=== PATIENT | male | born 1945 | race Caucasian/White ===

== ENCOUNTER 2016-12-10 08:36 | Day surgery (SDC) | payer MEDICARE, BC ==
[2016-12-08 13:27] VITALS: BMI 53.8
[~2016-12-10 08:36] MED LIST: HEPARIN SODIUM,PORCINE 5,000 UNIT/ML 1 ML VIAL SQ ONE; MIDAZOLAM 2 MG/2 ML VIAL IV PRN; ONDANSETRON 4 MG/2 ML VIAL IVP ONE; ceFAZolin 3 GM in SODIUM CHLORIDE 0.9% 100 ML IVPB ONE
--- NOTE | 2016-12-10 09:19 | P.GSHP ---
History of Present Illness H&P Date: 12/10/16 Chief Complaint: Incarcerated umbilical hernia Patient seen in the office in September. He has had complaints of pain in the midabdomen. He notices a bulge in that area. It is been enlarging gradually with time. He was found to have an incarcerated umbilical hernia. He had a recent CAT scan of the abdomen which shows an abdominal wall hernia containing fat. No nausea or vomiting. Past Medical History Past Medical History: Atrial Fibrillation, GERD/Reflux, Hyperlipidemia, Myocardial Infarction ([place]), Prostate Disorder, Sleep Apnea/CPAP/BIPAP Additional Past Medical History / Comment(s): CHRONIC BACK PAIN, SLEEPS IN RECLINER w/CPAP; "Cardiac arrest 01/2010 was d/t me being on cordarone" Last Myocardial Infarction Date:: 01/2010 History of Any Multi-Drug Resistant Organisms: None Reported Past Surgical History: Cholecystectomy, Heart Catheterization, Joint Replacement , Tonsillectomy Additional Past Surgical History / Comment(s): MULT CARDIOVERSIONS, LEFT KNEE REPLACEMENT; "cath was after cardiac arrest just to make sure there were no blockages", lien in 1988 Past Anesthesia/Blood Transfusion Reactions: No Reported Reaction Additional Past Anesthesia/Blood Transfusion Reaction / Comment(s): "ran a high temperature after my gallbladder was out because I was running a fever...for 2 weeks...that was the only time"; per pt Coby did not say that he had malignant hyperthermia. Past Psychological History: No Psychological Hx Reported Smoking Status: Former smoker Past Alcohol Use History: Occasional Additional Past Alcohol Use History / Comment(s): smoking: started 1960 stopped 1983 Past Drug Use History: None Reported - Past Family History Mother Family Medical History: Cancer, Coronary Artery Disease (CAD) Additional Family Medical History / Comment(s): ca: pancreatic ( from) Father Family Medical History: Coronary Artery Disease (CAD) Additional Family Medical History / Comment(s): of a ruptured aortic aneurysm, tuberculosis Medications and Allergies Home Medications Medication Instructions Recorded Confirmed Type Acetaminophen-Codeine 300-30mg 1 tab PO DIRECTED PRN 01/31/15 12/08/16 History [Tylenol w/codeine #3] Dabigatran [Pradaxa] 150 mg PO BID 01/31/15 12/08/16 History Doxazosin Mesylate [Cardura] 6 mg PO HS 01/31/15 12/08/16 History Ergocalciferol [Vitamin D2 50,000 unit PO QAM 01/31/15 12/08/16 History (DRISDOL)] Meloxicam [Mobic] 15 mg PO DAILY 01/31/15 12/08/16 History Pravastatin Sodium [Pravachol] 20 mg PO HS 01/31/15 12/08/16 History tiZANidine [Zanaflex] 4 mg PO DIRECTED PRN 01/31/15 12/08/16 History Bisoprolol-Hctz 2.5-6.25 mg [Ziac 0.5 each PO QAM 01/01/16 12/08/16 History 2.5-6.25] Fish Oil/Dha/Epa [Fish Oil 1,200 1 each PO BID 01/01/16 12/08/16 History mg Fish Oil] Multivitamins, Thera [Multivitamin] 1 tab PO QAM 01/01/16 12/08/16 History Allergies Allergy/AdvReac Type Severity Reaction Status Date / Time No Known Allergies Allergy Verified 12/10/16 09:08 Surgical - Exam Vital Signs Temp Pulse Resp BP Pulse Ox 98.2 F 77 16 174/86 96 12/10/16 09:14 12/10/16 09:14 12/10/16 09:14 12/10/16 09:14 12/10/16 09:14 Physical exam: General: Well-developed, well-nourished HEENT: Normocephalic, sclerae nonicteric Abdomen: Nontender, nondistended, large incarcerated umbilical hernia, markedly obese Extremities: No edema Neuro: Alert and oriented Assessment and Plan (1) Incarcerated umbilical hernia Narrative/Plan: Will proceed with operative repair. Risks of bleeding, infection, recurrence, seroma formation, possible need for mesh placement, possible need for omentectomy, bowel injury were discussed. He understands and wishes to proceed Status: Acute
[2016-12-10] MEDS: LACTATED RINGERS 1,000 ML IV SCH ×2 (09:59→10:18)
[2016-12-10] MEDS ORDERED: LIDOCAINE 1% 20 ML VIAL (10MG/ML) FOR IV START INTRADERMA ONE (09:59)
[2016-12-10 10:13] LABS: Basophils % (A) 0 %; CH 33.4; Eosinophils # (A) 0.1 k/uL (0-0.7); Eosinophils % (A) 1 %; HCT 43.9 % (39.0-53.0); HDW 2.47; HGB 14.8 gm/dL (13.0-17.5); Luc # (Auto) 0.12; Luc % (Auto) 1; Lymphocytes # (A) 1.3 k/uL (1.0-4.8); Lymphocytes % (A) 15 %; MCH 33.2 pg (25.0-35.0); MCHC 33.6 g/dL (31.0-37.0); MCV 98.6 fL (80.0-100.0); Mean Platelet Volume 6.7; Monocytes # (A) 0.4 k/uL (0-1.0); Monocytes % (A) 5 %; Neutrophils % (A) 78 %; RBC 4.46 m/uL (4.30-5.90); WBC (Perox) 9.02
[2016-12-10] MEDS ORDERED: NEOSTIGMINE 1 MG/ML 10 ML VIAL ONE (10:18)
[2016-12-10] MEDS ORDERED: fentaNYL (PF) 50 MCG/ML 2 ML AMP ONE (10:18)
[2016-12-10] MEDS ORDERED: GLYCOPYRROLATE 0.2 MG/ML 2 ML VIAL ONE (10:18)
[2016-12-10] MEDS ORDERED: PROPOFOL 10 MG/ML 20 ML VIAL IV ONE (10:18)
[2016-12-10] MEDS ORDERED: VECURONIUM 10 MG VIAL IV ONE (10:18)
[2016-12-10] MEDS ORDERED: SUCCINYLCHOLINE CHLORIDE VIAL 200 MG/10 ML VIAL IV ONE (10:18)
[2016-12-10] MEDS ORDERED: LIDOCAINE 1% INJ 10MG/ML (20 ML MDV) ONE (10:18)
[2016-12-10] MEDS ORDERED: MIDAZOLAM 2 MG/2 ML VIAL ONE (10:18)
[2016-12-10 10:27] LABS: Anion Gap 11 mmol/L; Blood Urea Nitrogen 17 mg/dL (9-20); Calcium 9.6 mg/dL (8.4-10.2); Carbon Dioxide 25 mmol/L (22-30); Chloride 103 mmol/L (98-107); Glucose 112 mg/dL (74-99); Non-African American GFR(MDRD) >60 (>60 ml/min/1.73 sqM); Sodium 139 mmol/L (137-145)
[2016-12-10] MEDS ORDERED: BUPIVACAINE (PF) 0.25% 30 ML VIAL SQ ONE (10:55)
[2016-12-10] MEDS ORDERED: LACTATED RINGERS 1,000 ML IV ONE (11:14)
[2016-12-10] MEDS ORDERED: NALOXONE 0.4 MG/ML 1 ML VIAL IV PRN (11:59)
[2016-12-10] MEDS ORDERED: METOCLOPRAMIDE 5 MG/ML 2 ML VIAL IVP PRN (11:59)
[2016-12-10] MEDS ORDERED: ONDANSETRON 4 MG/2 ML VIAL IVP PRN (11:59)
[2016-12-10] MEDS ORDERED: PROMETHAZINE 25 MG TAB PO PRN (11:59)
[2016-12-10] MEDS: HYDROmorphone 1 MG/ML 1 ML SYRINGE IVP PRN ×4 (12:05→14:14)
--- NOTE | 2016-12-10 12:05 | P.OP ---
Date of Procedure: 12/10/16 Procedure(s) Performed: PREOPERATIVE DIAGNOSIS: Incarcerated Umbilical hernia POSTOPERATIVE DIAGNOSIS: Same PROCEDURE: Umbilical herniorrhaphy with mesh and partial omentectomy SURGEON: Latesha EBL: Minimal ANESTHESIA: General COMPLICATIONS: None OPERATIVE PROCEDURE: The patient was placed in the operating table in the supine position. An elliptical incision was made horizontally across the midabdomen encompassing the patient's umbilicus and umbilical hernia sac. The dissection took place all the way down to the level of the fascia where the fascia was circumferentially dissected of surrounding fat. Hernia sac was removed from the fascia using the LigaSure device. There was some adherent omentum within the hernia sac that was also partially excised. The patient did have some serosanguineous fluid within the belly that was evacuated. Was not foul-smelling. This was not cloudy. This was thought to possibly be related to the incarcerated omental fat that had some induration. An 8 cm ventral ex mesh was chosen. This was placed beneath the fascia and circumferentially sutured in place using trans-fascial 2-0 Ethibond sutures. The fascial defect measured 6 cm in the size. The fascia was then closed horizontally using figure -of-eight #2 Ethibond sutures. Subcutaneous tissues were then closed using interrupted 3-0 Vicryl sutures after a drain was placed anterior to the fascial closure. Drain was sutured to the skin using a single 3-0 nylon stitch. The skin was then closed using fanny. A sterile dressings then applied. DISPOSITION: Stable to recovery room
[2016-12-10] MEDS ORDERED: tiZANidine 4 MG TAB PO PRN (16:30)
[2016-12-10] MEDS: HEPARIN SODIUM,PORCINE 5,000 UNIT/ML 1 ML VIAL SQ SCH ×2 (18:22→23:28)
[2016-12-10] MEDS: D5-0.45% NACL WITH KCL 20MEQ/L 1,000 ML IV SCH (18:57)
[2016-12-10] MEDS: DOXAZOSIN 4 MG TAB PO SCH (22:14)
[2016-12-10] MEDS: DOCUSATE 100 MG CAP PO SCH (22:14)
[2016-12-10] MEDS: FAMOTIDINE 20 MG TAB PO SCH (22:15)
[2016-12-10] MEDS: PRAVASTATIN SODIUM 20 MG TAB PO SCH (22:15)
[2016-12-10] MEDS: HYDROcodone/APAP 5-325MG 1 EACH TAB PO PRN (22:16)
[2016-12-11] MEDS: D5-0.45% NACL WITH KCL 20MEQ/L 1,000 ML IV SCH (02:14)
[2016-12-11 07:50] LABS: Basophils % (A) 0 %; CH 33.1; CHCM 33.2; Eosinophils % (A) 0 %; HCT 42.5 % (39.0-53.0); HDW 2.39; HGB 14.1 gm/dL (13.0-17.5); Luc # (Auto) 0.12; Luc % (Auto) 1; Lymphocytes % (A) 12 %; MCH 33.1 pg (25.0-35.0); MCHC 33.1 g/dL (31.0-37.0); MCV 100.2 fL (80.0-100.0); Macrocytosis Slight; Mean Platelet Volume 6.6; Monocytes # (A) 0.6 k/uL (0-1.0); Monocytes % (A) 6 %; Neutrophils % (A) 80 %; RBC 4.24 m/uL (4.30-5.90); WBC 8.7 k/uL (3.8-10.6); WBC (Perox) 8.85
[2016-12-11] MEDS: HYDROcodone/APAP 5-325MG 1 EACH TAB PO PRN ×2 (07:51→16:15)
[2016-12-11] MEDS: BISOPROLOL-HCTZ 2.5-6.25 MG 1 EACH TAB PO SCH (07:52)
[2016-12-11] MEDS: MELOXICAM 7.5 MG TAB PO SCH (07:53)
[2016-12-11] MEDS: FAMOTIDINE 20 MG TAB PO SCH ×2 (07:54→20:39)
[2016-12-11] MEDS: DOCUSATE 100 MG CAP PO SCH ×2 (07:55→20:39)
[2016-12-11 08:10] LABS: ALT 28 U/L (21-72); AST 27 U/L (17-59); Alkaline Phosphatase 70 U/L (38-126); Anion Gap 8 mmol/L; Blood Urea Nitrogen 14 mg/dL (9-20); Calcium 8.9 mg/dL (8.4-10.2); Carbon Dioxide 28 mmol/L (22-30); Chloride 101 mmol/L (98-107); Glucose 123 mg/dL (74-99); Non-African American GFR(MDRD) >60 (>60 ml/min/1.73 sqM); Potassium 4.4 mmol/L (3.5-5.1); Sodium 137 mmol/L (137-145); Total Bilirubin 2.1 mg/dL (0.2-1.3); Total Protein 6.6 g/dL (6.3-8.2)
[2016-12-11] MEDS: HYDROmorphone 1 MG/ML 1 ML SYRINGE IVP PRN ×2 (10:42→19:39)
[2016-12-11] MEDS: MULTIVITAMINS, THERA 1 EACH TAB PO SCH (13:38)
[2016-12-11] MEDS: HEPARIN SODIUM,PORCINE 5,000 UNIT/ML 1 ML VIAL SQ SCH ×2 (13:39→16:43)
--- NOTE | 2016-12-11 14:15 | P.PN ---
Progress Note - Text The patient remained stable. Had umbilical hernia repair yesterday. Tolerated his diet. Denies nausea or vomiting. Usual postoperative discomfort. Reluctant to ambulate. On examination the patient is awake alert in no distress. Abdomen is soft obese. No evidence of complications from his surgery. Dry dry dressings. Impression stable postop. Morbid obesity. Recommendation encouraged to ambulate. We'll discharge tomorrow.
--- NOTE | 2016-12-11 14:18 | P.HPIM ---
History of Present Illness H&P Date: 12/11/16 Chief Complaint: Abdominal pain and vomiting Patient is a 71-year-old male who was admitted to [facility] by Dr. bell due to abdominal pain and vomiting he had evidence of umbilical hernia he underwent umbilical hernia repair on admission, patient is doing well postoperatively. He has known history of hypertension history of atrial fibrillation history of hyperlipidemia and history of benign prostatic hypertrophy. Past Medical History Past Medical History: Atrial Fibrillation, GERD/Reflux, Hyperlipidemia, Myocardial Infarction ([place]), Prostate Disorder, Sleep Apnea/CPAP/BIPAP Additional Past Medical History / Comment(s): CHRONIC BACK PAIN, SLEEPS IN RECLINER w/CPAP; "Cardiac arrest 01/2010 was d/t me being on cordarone" Last Myocardial Infarction Date:: 01/2010 History of Any Multi-Drug Resistant Organisms: None Reported Past Surgical History: Cholecystectomy, Heart Catheterization, Joint Replacement , Tonsillectomy Additional Past Surgical History / Comment(s): MULT CARDIOVERSIONS, LEFT KNEE REPLACEMENT; "cath was after cardiac arrest just to make sure there were no blockages", lien in 1988 Past Anesthesia/Blood Transfusion Reactions: No Reported Reaction Additional Past Anesthesia/Blood Transfusion Reaction / Comment(s): "ran a high temperature after my gallbladder was out because I was running a fever...for 2 weeks...that was the only time"; per pt 'ana did not say that he had malignant hyperthermia. Past Psychological History: No Psychological Hx Reported Smoking Status: Former smoker Past Alcohol Use History: Occasional Additional Past Alcohol Use History / Comment(s): smoking: started 1959 stopped 1983 Past Drug Use History: None Reported - Past Family History Mother Family Medical History: Cancer, Coronary Artery Disease (CAD) Additional Family Medical History / Comment(s): ca: pancreatic ( from) Father Family Medical History: Coronary Artery Disease (CAD) Additional Family Medical History / Comment(s): of a ruptured aortic aneurysm, tuberculosis Medications and Allergies Home Medications Medication Instructions Recorded Confirmed Type Acetaminophen-Codeine 300-30mg 1 tab PO DIRECTED PRN 01/31/15 12/08/16 History [Tylenol w/codeine #3] Dabigatran [Pradaxa] 150 mg PO BID 01/31/15 12/08/16 History Doxazosin Mesylate [Cardura] 6 mg PO HS 01/31/15 12/08/16 History Ergocalciferol [Vitamin D2 50,000 unit PO QAM 01/31/15 12/08/16 History (DRISDOL)] Meloxicam [Mobic] 15 mg PO DAILY 01/31/15 12/08/16 History Pravastatin Sodium [Pravachol] 20 mg PO HS 01/31/15 12/08/16 History tiZANidine [Zanaflex] 4 mg PO DIRECTED PRN 01/31/15 12/08/16 History Bisoprolol-Hctz 2.5-6.25 mg [Ziac 0.5 each PO QAM 01/01/16 12/08/16 History 2.5-6.25] Fish Oil/Dha/Epa [Fish Oil 1,200 1 each PO BID 01/01/16 12/08/16 History mg Fish Oil] Multivitamins, Thera [Multivitamin] 1 tab PO QAM 01/01/16 12/08/16 History Allergies Allergy/AdvReac Type Severity Reaction Status Date / Time No Known Allergies Allergy Verified 12/10/16 09:08 Physical Exam Vitals: Vital Signs Temp Pulse Pulse Resp BP Pulse Ox 12/11/16 07:00 98.7 F 100 18 128/69 93 L 12/11/16 04:00 55 L 93 20 12/11/16 00:00 98.5 F 55 L 93 20 134/75 96 12/10/16 20:00 55 L 76 16 12/10/16 16:10 97.3 F L 76 16 143/95 98 12/10/16 15:16 55 L 16 154/74 97 12/10/16 15:00 68 16 146/71 97 12/10/16 14:46 75 16 159/72 97 12/10/16 14:30 65 16 149/73 97 12/10/16 14:15 60 16 153/82 97 Intake and Output 12/10/16 12/11/16 12/11/16 22:59 06:59 14:59 Intake Total 1000 Output Total 1000 1410 Balance -1000 -410 Intake: Intake, IV Titration 1000 Amount D5-0.45% NaCl with KCl 1000 20Meq/l 1,000 ml @ 125 mls/hr IV .Q8H TALON Rx#: [id number] Output: Drainage 60 Lower Abdomen 60 Urine 1000 1350 Other: Weight 170.097 kg 170.097 kg In general patient is alert and oriented 3 in no apparent distress HEENT head normocephalic and atraumatic Neck is supple no JVD no goiter no lymphadenopathy Chest is clear to auscultation no wheezing Cardiac exam reveals regular heart sounds no gallops no murmurs Abdomen is soft nontender no organomegaly was normal bowel sounds Extremity exam reveals no edema no cyanosis or clubbing Results CBC & Chem 7: 12/11/16 07:05 12/11/16 07:05 Labs: Abnormal Lab Results - Last 24 Hours (Table) 12/11/16 12/11/16 Range/Units 07:05 07:05 RBC 4.24 L (4.30-5.90) m/uL MCV 100.2 H (80.0-100.0) fL Glucose 123 H (74-99) mg/dL Total Bilirubin 2.1 H (0.2-1.3) mg/dL Thrombosis Risk Factor Assmnt - Choose All That Apply Each Factor Represents 1 point: Minor surgery planned, Obesity (BMI >25) Each Risk Factor Represents 2 Points: Age 61-74 years Thrombosis Risk Factor Assessment Total Risk Factor Score: 4 Thrombosis Risk Factor Assessment Level: Moderate Risk Assessment and Plan Plan: #1 umbilical hernia status post surgical repair yesterday #2 underlying history of hypertension #3 underlying history of atrial fibrillation patient currently is maintained on subcu heparin anti coagulation remains on hold until cleared by surgery #4 previous history of cardiac arrest At this time medication and labs were reviewed continue was current management will follow closely while hospitalized
[2016-12-11] MEDS ORDERED: PIPERACILLIN-TAZOBACTAM 3.375 GM in DEXTROSE/WATER 1 50ML.BAG IVPB SCH (16:00)
[2016-12-11] MEDS: DOXAZOSIN 4 MG TAB PO SCH (20:39)
[2016-12-11] MEDS: PRAVASTATIN SODIUM 20 MG TAB PO SCH (20:40)
[2016-12-12] MEDS ORDERED: HEPARIN SODIUM,PORCINE 5,000 UNIT/ML 1 ML VIAL ONE ×4 (00:36)
[2016-12-12] MEDS ORDERED: D5-0.45% NACL WITH KCL 20MEQ/L 1,000 ML BAG IV ONE ×2 (00:36)
[2016-12-12] MEDS: HEPARIN SODIUM,PORCINE 5,000 UNIT/ML 1 ML VIAL SQ SCH ×4 (00:36→22:30)
[2016-12-12] MEDS: HYDROcodone/APAP 5-325MG 1 EACH TAB PO PRN ×2 (04:12→10:26)
[2016-12-12 07:53] LABS: ALT 26 U/L (21-72); AST 16 U/L (17-59); Alkaline Phosphatase 75 U/L (38-126); Anion Gap 7 mmol/L; Blood Urea Nitrogen 13 mg/dL (9-20); Calcium 8.9 mg/dL (8.4-10.2); Carbon Dioxide 26 mmol/L (22-30); Chloride 103 mmol/L (98-107); Glucose 125 mg/dL (74-99); Non-African American GFR(MDRD) >60 (>60 ml/min/1.73 sqM); Sodium 136 mmol/L (137-145); Total Bilirubin 1.9 mg/dL (0.2-1.3); Total Protein 6.3 g/dL (6.3-8.2)
[2016-12-12 07:57] LABS: Basophils % (A) 0 %; CH 33.6; CHCM 33.2; Eosinophils % (A) 0 %; HCT 42.6 % (39.0-53.0); HDW 2.44; HGB 13.7 gm/dL (13.0-17.5); Luc # (Auto) 0.11; Luc % (Auto) 1; Lymphocytes # (A) 1.2 k/uL (1.0-4.8); Lymphocytes % (A) 12 %; MCH 32.7 pg (25.0-35.0); MCHC 32.2 g/dL (31.0-37.0); MCV 101.4 fL (80.0-100.0); Macrocytosis Slight; Monocytes # (A) 0.6 k/uL (0-1.0); Monocytes % (A) 6 %; Neutrophils # (A) 8.1 k/uL (1.3-7.7); Neutrophils % (A) 81 %; RDW 14.1 % (11.5-15.5); WBC 9.9 k/uL (3.8-10.6); WBC (Perox) 10.05
[2016-12-12] MEDS: BISOPROLOL-HCTZ 2.5-6.25 MG 1 EACH TAB PO SCH (08:49)
[2016-12-12] MEDS: MELOXICAM 7.5 MG TAB PO SCH (08:50)
[2016-12-12] MEDS: DOCUSATE 100 MG CAP PO SCH ×2 (08:50→21:01)
[2016-12-12] MEDS: FAMOTIDINE 20 MG TAB PO SCH ×2 (08:50→21:01)
[2016-12-12] MEDS ORDERED: MAG HYDROX/AL HYDROX/SIMETH 30 ML CUP PO PRN (09:58)
--- NOTE | 2016-12-12 09:58 | P.PN ---
Progress Note - Text Patient states he doesn't feel that good today. A little nauseous. Didn't have any breakfast this morning. No appetite. No flatus or bowel movement. On examination patient is awake alert in no acute distress. Temperature is normal. Vitals are stable. Abdomen very obese. Soft however no localized tenderness or guarding. Usual postoperative tenderness in the periumbilical region. No mass or organomegaly. Impression nausea reflux with heartburn. Probably ileus. Recommendation continue Pepcid IV.. Anti-emetics. Antacids. Watch another day or so. Encourage ambulation.
[2016-12-12] MEDS: D5-0.45% NACL WITH KCL 20MEQ/L 1,000 ML IV SCH ×6 (10:27→16:36)
[2016-12-12] MEDS: MULTIVITAMINS, THERA 1 EACH TAB PO SCH (12:14)
--- NOTE | 2016-12-12 15:09 | P.PN ---
Subjective Patient is a 71-year-old male who was admitted to [facility] by Dr. bell due to abdominal pain and vomiting he had evidence of umbilical hernia he underwent umbilical hernia repair on admission, patient is doing well postoperatively. He has known history of hypertension history of atrial fibrillation history of hyperlipidemia and history of benign prostatic hypertrophy. Shouldn't is feeling better he denies any abdominal pain he had a bowel movement he ambulated a few steps Objective - Vital Signs Vital signs: Vital Signs Temp 98.8 F 12/12/16 07:00 Pulse 75 12/12/16 14:19 Resp 18 12/12/16 07:00 BP 132/81 12/12/16 14:19 Pulse Ox 97 12/12/16 14:19 Intake & Output 12/11/16 12/12/16 12/12/16 18:59 06:59 18:59 Intake Total 1935 Output Total 748 178 3227 Balance -150 1570 -1200 Weight 170.097 kg Intake: Intake, IV Titration 1934 Amount D5-0.45% NaCl with KCl 1935 20Meq/l 1,000 ml @ 125 mls/hr IV .Q8H TALON Rx#: [id number] Output: Drainage 65 Lower Abdomen 65 Urine 282 163 1016 Other: Voiding Method Urinal # Voids 2 2 - Exam HEENT no acute abnormality Neck is supple no JVD no goiter no lymphadenopathy Chest is clear to auscultation no wheezing Cardiac exam reveals regular heart sounds no murmurs Abdomen is soft nontender no organomegaly Extremity exam reveals no edema no cyanosis or clubbing - Labs CBC & Chem 7: 12/12/16 06:24 12/12/16 06:24 Labs: Abnormal Lab Results - Last 24 Hours (Table) 12/12/16 12/12/16 Range/Units 06:24 06:24 RBC 4.20 L (4.30-5.90) m/uL MCV 101.4 H (80.0-100.0) fL Neutrophils # 8.1 H (1.3-7.7) k/uL Sodium 136 L (137-145) mmol/L Glucose 125 H (74-99) mg/dL Total Bilirubin 1.9 H (0.2-1.3) mg/dL AST 16 L (17-59) U/L Albumin 3.4 L (3.5-5.0) g/dL Assessment and Plan Plan: #1 umbilical hernia status post surgical repair yesterday #2 underlying history of hypertension #3 underlying history of atrial fibrillation patient currently is maintained on subcu heparin anti coagulation remains on hold until cleared by surgery #4 remote history of cardiac arrest At this time medication and labs were reviewed continue with current management will follow closely while hospitalized Possible discharge to home in the next 1-2 days
[2016-12-12] MEDS: LACTATED RINGERS 1,000 ML IV SCH ×2 (15:11→15:14)
[2016-12-12] MEDS: PRAVASTATIN SODIUM 20 MG TAB PO SCH (21:01)
[2016-12-12] MEDS: DOXAZOSIN 4 MG TAB PO SCH (21:01)
[2016-12-13] MEDS ORDERED: ONDANSETRON 4 MG/2 ML VIAL ONE (02:48)
[2016-12-13] MEDS ORDERED: BISOPROLOL-HCTZ 2.5-6.25 MG 1 EACH TAB ONE (02:48)
[2016-12-13] MEDS ORDERED: D5-0.45% NACL WITH KCL 20MEQ/L 1,000 ML BAG IV ONE ×2 (02:48)
[2016-12-13] MEDS ORDERED: DABIGATRAN 150 MG CAP PO ONE (02:48)
[2016-12-13] MEDS ORDERED: FAMOTIDINE 20 MG TAB ONE ×2 (02:48)
[2016-12-13] MEDS ORDERED: MELOXICAM 7.5 MG TAB ONE (02:48)
[2016-12-13] MEDS ORDERED: ACETAMINOPHEN TAB 325 MG TAB ONE ×2 (02:48)
[2016-12-13] MEDS ORDERED: MULTIVITAMINS, THERA 1 EACH TAB ONE (02:48)
[2016-12-13] MEDS ORDERED: DOXAZOSIN 4 MG TAB PO ONE (02:48)
[2016-12-13] MEDS ORDERED: HEPARIN SODIUM,PORCINE 5,000 UNIT/ML 1 ML VIAL ONE (02:48)
[2016-12-13] MEDS ORDERED: METOCLOPRAMIDE 5 MG/ML 2 ML VIAL ONE (02:48)
[2016-12-13] MEDS ORDERED: PRAVASTATIN SODIUM 20 MG TAB ONE (02:48)
[2016-12-13] MEDS: D5-0.45% NACL WITH KCL 20MEQ/L 1,000 ML IV SCH ×2 (03:57→08:02)
[2016-12-13 07:27] LABS: Basophils % (A) 0 %; CH 33.9; CHCM 34.7; Eosinophils # (A) 0.1 k/uL (0-0.7); Eosinophils % (A) 1 %; HCT 40.9 % (39.0-53.0); HDW 2.62; HGB 14.1 gm/dL (13.0-17.5); Luc # (Auto) 0.15; Luc % (Auto) 2; Lymphocytes # (A) 1.4 k/uL (1.0-4.8); Lymphocytes % (A) 17 %; MCH 33.7 pg (25.0-35.0); MCHC 34.4 g/dL (31.0-37.0); MCV 97.9 fL (80.0-100.0); Monocytes # (A) 0.6 k/uL (0-1.0); Monocytes % (A) 7 %; Neutrophils % (A) 73 %; RBC 4.18 m/uL (4.30-5.90); RDW 13.5 % (11.5-15.5); WBC 8.3 k/uL (3.8-10.6); WBC (Perox) 9.26
[2016-12-13 07:43] LABS: ALT 26 U/L (21-72); AST 22 U/L (17-59); Alkaline Phosphatase 82 U/L (38-126); Anion Gap 8 mmol/L; Blood Urea Nitrogen 14 mg/dL (9-20); Carbon Dioxide 24 mmol/L (22-30); Chloride 103 mmol/L (98-107); Glucose 120 mg/dL (74-99); Non-African American GFR(MDRD) >60 (>60 ml/min/1.73 sqM); Potassium 4.4 mmol/L (3.5-5.1); Sodium 135 mmol/L (137-145); Total Bilirubin 1.6 mg/dL (0.2-1.3); Total Protein 6.3 g/dL (6.3-8.2)
[2016-12-13] MEDS: ACETAMINOPHEN TAB 325 MG TAB PO PRN ×2 (07:58→18:08)
[2016-12-13] MEDS: HEPARIN SODIUM,PORCINE 5,000 UNIT/ML 1 ML VIAL SQ SCH ×2 (07:59→18:02)
[2016-12-13] MEDS: BISOPROLOL-HCTZ 2.5-6.25 MG 1 EACH TAB PO SCH (08:00)
[2016-12-13] MEDS: FAMOTIDINE 20 MG TAB PO SCH ×2 (08:01→21:56)
[2016-12-13] MEDS: DOCUSATE 100 MG CAP PO SCH ×2 (08:01→18:03)
[2016-12-13] MEDS: MELOXICAM 7.5 MG TAB PO SCH (08:01)
--- NOTE | 2016-12-13 12:59 | P.PN ---
Subjective Patient is complaining of nausea this morning. He said that he did not eat much of his breakfast. He is also complaining of neck pain. Objective - Vital Signs Vital signs: Vital Signs Temp 97.3 F L 12/13/16 07:00 Pulse 108 H 12/13/16 07:00 Resp 16 12/13/16 07:00 BP 143/82 12/13/16 07:00 Pulse Ox 94 L 12/13/16 07:52 Intake & Output 12/12/16 12/13/16 12/13/16 18:59 06:59 18:59 Intake Total 240 Output Total 1260 35 40 Balance -1260 205 -40 Intake: Oral 240 Output: Drainage 60 35 40 Lower Abdomen 60 35 40 Urine 1200 Other: Voiding Method Urinal # Bowel Movements 1 - Exam General: The patient is awake and alert, in no distress Eye: there is normal conjunctiva bilaterally. Neck: The neck is supple, there is no JVD. Cardiovascular: Normal S1-S2, no S3-S4, no murmurs. Respiratory: Lungs clear to auscultation bilaterally Gastrointestinal: Abdomen is soft, nontender she pedal edema. Musculoskeletal: There is +1 pedal edema. Neurological:. Speech is normal. Skin: Skin is warm and dry - Labs CBC & Chem 7: 12/13/16 07:08 12/13/16 07:05 Labs: Abnormal Lab Results - Last 24 Hours (Table) 12/13/16 12/13/16 Range/Units 07:05 07:08 RBC 4.18 L (4.30-5.90) m/uL Sodium 135 L (137-145) mmol/L Glucose 120 H (74-99) mg/dL Total Bilirubin 1.6 H (0.2-1.3) mg/dL Assessment and Plan Plan: #1 umbilical hernia status post surgical repair #2 underlying history of hypertension #3 underlying history of atrial fibrillation may resume Pradaxa if okay with general surgery. #4 remote history of cardiac arrest
[2016-12-13] MEDS: MULTIVITAMINS, THERA 1 EACH TAB PO SCH (13:07)
--- NOTE | 2016-12-13 15:55 | P.PN ---
Subjective Principal diagnosis: Post umbilical hernia Patient complaining of ongoing neck pain. Apparently this is been occurring over the weekend. He has been nauseous although somewhat better today at lunchtime. No vomiting. He is passing flatus without bowel movements. His activity level is minimal. His labs appear fairly normal. Objective - Vital Signs Vital signs: Vital Signs Temp 97.3 F L 12/13/16 07:00 Pulse 78 12/13/16 08:32 Resp 16 12/13/16 07:00 BP 154/87 12/13/16 08:32 Pulse Ox 99 12/13/16 08:32 Intake & Output 12/12/16 12/13/16 12/13/16 18:59 06:59 18:59 Intake Total 240 Output Total 1260 35 110 Balance -1260 205 -110 Intake: Oral 240 Output: Drainage 60 35 110 Lower Abdomen 60 35 110 Urine 1200 Other: Voiding Method Urinal # Bowel Movements 1 - Exam Abdomen: Soft, nondistended, incision mild tender, incision clean and dry - Labs CBC & Chem 7: 12/13/16 07:08 12/13/16 07:05 Labs: Abnormal Lab Results - Last 24 Hours (Table) 12/13/16 12/13/16 Range/Units 07:05 07:08 RBC 4.18 L (4.30-5.90) m/uL Sodium 135 L (137-145) mmol/L Glucose 120 H (74-99) mg/dL Total Bilirubin 1.6 H (0.2-1.3) mg/dL Assessment and Plan (1) Incarcerated umbilical hernia Narrative/Plan: We'll consult Dr. Gao to evaluate his neck pain. Continue soft diet for now. Increase activity level. Status: Acute
--- NOTE | 2016-12-13 20:47 | XR ---
EXAMINATION TYPE: XR cervical spine w flex/ext DATE OF EXAM: 12/13/2016 7:11 PM TECHNIQUE: Frontal, lateral, swimmers, dynamic flexion and extension lateral, and open mouth view of the cervical spine are obtained. HISTORY: Neck pain and stiffness COMPARISON: None FINDINGS: The cervical spine is visualized in its entirety from C1 thru the top of T1 level, it is s traightened in alignment without evidence of acute fracture or dislocation. The pre-vertebral soft t issue appears within normal limits. The C1-C2 articulation is within normal limits on the open mouth view. Vertebral body heights are maintained. There is moderate to severe disc space narrowing at C4-C5 thro ugh C6-C7 level. Mild to moderate spurring C4-C5 and C5-C6 levels is seen. C7-T1 level suboptimally e valuated due to overlying clavicle. Dynamic flexion and extension views show no significant increase disc space narrowing or focal subluxation. Overlying soft tissue is unremarkable. Demineralization is present. Facet arthropathy mid cervical levels is suspected bilaterally. IMPRESSION: Straightening of cervical spine with demineralization and multilevel degenerative changes seen that are most prominent in mid to lower cervical levels.
[2016-12-13] MEDS: DOXAZOSIN 4 MG TAB PO SCH (21:56)
[2016-12-13] MEDS: DABIGATRAN 150 MG CAP PO SCH (21:56)
[2016-12-13] MEDS: PRAVASTATIN SODIUM 20 MG TAB PO SCH (21:56)
[2016-12-14] MEDS: ACETAMINOPHEN TAB 325 MG TAB PO PRN (03:06)
[2016-12-14 03:42] VITALS: RESP 16
[2016-12-14 08:18] VITALS: BP 149/74; PULSE 77; TEMP 98
--- NOTE | 2016-12-14 08:45 | P.CNOR ---
History of Present Illness - [facility] Consult date: 12/14/16 Requesting physician: Erick Charlton Consult reason: neck pain (cervical pain and stiffness) History of present illness: Patient is a very pleasant 71-year-old male who is seen and examined the bedside after we were consulted for further evaluation for neck pain and stiffness by Dr. Charlton. Patient recently underwent surgical intervention with Dr. Charlton for treatment for an incarcerated umbilical hernia. He has been progressing postsurgically. Patient states today he is probably planning to be discharged home today. He states following surgery he has noticed some increase cervical pain and stiffness. He's had more difficulty with rotation bilaterally. He states this is a new symptom for him. He denies any upper extremity weakness or radiculopathy bilaterally. He denies any recent injuries. Past Medical History Past Medical History: Atrial Fibrillation, GERD/Reflux, Hyperlipidemia, Myocardial Infarction (VT), Prostate Disorder, Sleep Apnea/CPAP/BIPAP Additional Past Medical History / Comment(s): CHRONIC BACK PAIN, SLEEPS IN RECLINER w/CPAP; "Cardiac arrest 01/2010 was d/t me being on cordarone" Last Myocardial Infarction Date:: 01/2010 History of Any Multi-Drug Resistant Organisms: None Reported Past Surgical History: Cholecystectomy, Heart Catheterization, Joint Replacement , Tonsillectomy Additional Past Surgical History / Comment(s): MULT CARDIOVERSIONS, LEFT KNEE REPLACEMENT; "cath was after cardiac arrest just to make sure there were no blockages", lien in 1988 Past Anesthesia/Blood Transfusion Reactions: No Reported Reaction Additional Past Anesthesia/Blood Transfusion Reaction / Comm: "ran a high temperature after my gallbladder was out because I was running a fever...for 2 weeks...that was the only time"; per pt Coby did not say that he had malignant hyperthermia. Past Psychological History: No Psychological Hx Reported Smoking Status: Former smoker Past Alcohol Use History: Occasional Additional Past Alcohol Use History / Comment(s): smoking: started 1959 stopped 1983 Past Drug Use History: None Reported - Past Family History Mother Family Medical History: Cancer, Coronary Artery Disease (CAD) Additional Family Medical History / Comment(s): ca: pancreatic ( from) Father Family Medical History: Coronary Artery Disease (CAD) Additional Family Medical History / Comment(s): of a ruptured aortic aneurysm, tuberculosis Medications and Allergies Home Medications Medication Instructions Recorded Confirmed Type Acetaminophen-Codeine 300-30mg 1 tab PO DIRECTED PRN 01/31/15 12/08/16 History [Tylenol w/codeine #3] Dabigatran [Pradaxa] 150 mg PO BID 01/31/15 12/08/16 History Doxazosin Mesylate [Cardura] 6 mg PO HS 01/31/15 12/08/16 History Ergocalciferol [Vitamin D2 50,000 unit PO QAM 01/31/15 12/08/16 History (DRISDOL)] Meloxicam [Mobic] 15 mg PO DAILY 01/31/15 12/08/16 History Pravastatin Sodium [Pravachol] 20 mg PO HS 01/31/15 12/08/16 History tiZANidine [Zanaflex] 4 mg PO DIRECTED PRN 01/31/15 12/08/16 History Bisoprolol-Hctz 2.5-6.25 mg [Ziac 0.5 each PO QAM 01/01/16 12/08/16 History 2.5-6.25] Fish Oil/Dha/Epa [Fish Oil 1,200 1 each PO BID 01/01/16 12/08/16 History mg Fish Oil] Multivitamins, Thera [Multivitamin] 1 tab PO QAM 01/01/16 12/08/16 History Allergies Allergy/AdvReac Type Severity Reaction Status Date / Time No Known Allergies Allergy Verified 12/10/16 09:08 Physical Examination Physical exam: Patient is awake, alert, and oriented 3 Vital signs stable Good chest excursion with deep inspiration and expiration Examination of the cervical spine reveals skin is intact with no abrasions, lacerations, or bruises; no erythema, purulence or signs of infection Full range of motion of the cervical spine with adequate flexion and extension; decreased range of motion with rotation bilaterally 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, thumb strength, interosseous strength, biceps strength, triceps strength, and shoulder strength positive sustained bilaterally Upper extremity strength 5/5 bilaterally No upper extremity hyperreflexia bilaterally Negative Moya's sign bilaterally Results Pertinent studies: X-rays of the cervical spine: Cervical degenerative disc disease C4-5, C5-6, & C6-7 with some anterior osteophytic spurring; cervical spondylosis; no evidence of vertebral body compression fracture; no evidence of spondylolisthesis; overall alignment appears to be adequately maintained - Labs Labs: H & H 12/10/16 12/11/16 12/12/16 Range/Units 09:58 07:05 06:24 Hgb 14.8 14.1 13.7 (13.0-17.5) gm/dL Hct 43.9 42.5 42.6 (39.0-53.0) % 12/13/16 Range/Units 07:08 Hgb 14.1 (13.0-17.5) gm/dL Hct 40.9 (39.0-53.0) % Result Diagrams: 12/13/16 07:08 12/13/16 07:05 Assessment and Plan (1) Cervical pain Status: Acute (2) Degenerative disc disease, cervical Status: Acute (3) Cervical spondylosis Status: Acute (4) Incarcerated umbilical hernia Status: Acute Plan: Assessment: Status post umbilical herniorrhaphy with mesh and partial omentectomy Cervical pain and stiffness Cervical degenerative disc disease C4-5, C5-6, & C6-7 Cervical spondylosis Plan: 1. After reviewing the patient's imaging, physical examination of the patient, and further discussion with the patient, we will currently plan to continue with conservative treatment regards to his cervical spine. He is not currently experiencing any significant upper extremity radiculopathy or weakness bilaterally. He has had some increased cervical pain and stiffness since being admitted to the hospital. At this time, we'll plan have him follow up in outpatient setting for further evaluation in approximately 2 weeks. We discussed if his symptoms are not improving following discharge, we may plan to have him work through formal physical therapy for his cervical spine. We may also plan to obtain further imaging. He may participate in activities as tolerated in regards to his cervical spine. At this time, patient is clear for discharge from an orthopedic spine standpoint. Patient feels this is an appropriate plan of care. 2. Dr. Charlton will continue following the patient 3. Following discharge, patient may follow-up with Kenny Dumont PA-C or Dr. Salvador Gao at [facility] approximately 2 weeks for further evaluation 4. I have discussed this patient in detail with Dr. Salvador Gao and he agrees with this plan Time with Patient: Less than 30
[2016-12-14] MEDS: DABIGATRAN 150 MG CAP PO SCH (08:54)
[2016-12-14] MEDS: MELOXICAM 7.5 MG TAB PO SCH (08:54)
[2016-12-14] MEDS: FAMOTIDINE 20 MG TAB PO SCH (08:54)
[2016-12-14] MEDS: DOCUSATE 100 MG CAP PO SCH (08:55)
[2016-12-14] MEDS: BISOPROLOL-HCTZ 2.5-6.25 MG 1 EACH TAB PO SCH (08:55)
--- NOTE | 2016-12-14 13:48 | P.DS ---
Providers Expected date of discharge: 12/14/16 Attending physician: Erick Charlton Consults: 12/10/16 11:59 Consult Physician Routine Consulting Provider: Dariela Pino Consult Reason/Comments: Medical management Do you want consulting provider notified?: Yes 12/13/16 15:53 Consult Physician Routine Consulting Provider: Daina Gao Consult Reason/Comments: Neck pain Do you want consulting provider notified?: Yes Primary care physician: Anaid Christianson - Discharge Diagnosis(es) (1) Incarcerated umbilical hernia Patient came in on Tuesday for elective repair of a large incarcerated umbilical hernia. The patient is a large obese male with limited mobility. His hernia was quite large and he was kept overnight for observation purposes. Discharge planning was arranged and home care was set up. Postoperative the patient had episodes of nausea and near vomiting. We suspect he suffered from a postoperative ileus as the result of the surgical procedure. His vital signs and labs were fairly normal. He was seen by medicine during the hospitalization. Yesterday his nausea seemed to improve and he was started back on regular food and tolerated that over night into today. The patient did have increasing neck pain however and consultation orthopedics took place and. Today the patient is doing well. His pain is improved. He is anxious to go home. He will be discharged home with home care and a drain in place. The patient will follow up me in the office 1 week. Status: Acute Plan - Discharge Summary New Discharge Prescriptions: Hydrocodone/Acetaminophen [[place] 5-325] 1 - 2 each PO Q4HR PRN #30 tab PRN Reason: pain Discharge Medication List Acetaminophen-Codeine 300-30mg [Tylenol w/codeine #3] 1 tab PO DIRECTED PRN 01/31/15 [History] Dabigatran [Pradaxa] 150 mg PO BID 01/31/15 [History] Doxazosin Mesylate [Cardura] 6 mg PO HS 01/31/15 [History] Ergocalciferol [Vitamin D2 (DRISDOL)] 50,000 unit PO QAM 01/31/15 [History] Meloxicam [Mobic] 15 mg PO DAILY 01/31/15 [History] Pravastatin Sodium [Pravachol] 20 mg PO HS 01/31/15 [History] tiZANidine [Zanaflex] 4 mg PO DIRECTED PRN 01/31/15 [History] Bisoprolol-Hctz 2.5-6.25 mg [Ziac 2.5-6.25] 0.5 each PO QAM 01/01/16 [History] Fish Oil/Dha/Epa [Fish Oil 1,200 mg Fish Oil] 1 each PO BID 01/01/16 [History] Multivitamins, Thera [Multivitamin] 1 tab PO QAM 01/01/16 [History] Hydrocodone/Acetaminophen [[place] 5-325] 1 - 2 each PO Q4HR PRN #30 tab 12/10/16 [Rx] Follow up Appointment(s)/Referral(s): Erick Charlton MD [Medical Doctor] - 1 Week Kenny Dumont PAC [PHYSICIAN THRESHING MACHINE OPERATOR] - 2 Weeks (Patient may follow-up with Kenny Dumont PA-C or Dr. Salvador Gao at [facility] in 2 weeks following discharge. ) [facility] Visiting Nurse, [NON-STAFF] - 1 Week Activity/Diet/Wound Care/Special Instructions: 1. Patient may participate in activities as tolerated in regards to his cervical spine
[2016-12-14] MEDS: MULTIVITAMINS, THERA 1 EACH TAB PO SCH (13:53)
--- NOTE | 2016-12-14 14:44 | P.PN ---
Subjective patient is doing well today. No nausea or vomiting. He is looking forward to be discharged home. Objective - Vital Signs Vital signs: Vital Signs Temp 98 F 12/14/16 07:00 Pulse 77 12/14/16 07:00 Resp 16 12/14/16 07:00 BP 149/74 12/14/16 07:00 Pulse Ox 94 L 12/14/16 07:00 Intake & Output 12/13/16 12/14/16 12/14/16 18:59 06:59 18:59 Intake Total 980 200 100 Output Total 110 90 0 Balance 870 110 100 Intake: Intake, IV Titration 500 Amount D5-0.45% NaCl with KCl 500 20Meq/l 1,000 ml @ 125 mls/hr IV .Q8H TALON Rx#: [id number] Oral 480 200 100 Output: Drainage 110 90 0 Lower Abdomen 110 90 0 Other: Voiding Method Toilet Urinal # Voids 2 - Exam General: The patient is awake and alert, in no distress Eye: there is normal conjunctiva bilaterally. Neck: The neck is supple, there is no JVD. Cardiovascular: Normal S1-S2, no S3-S4, no murmurs. Respiratory: Lungs clear to auscultation bilaterally Gastrointestinal: Abdomen is soft, nontender PETER drain in place Musculoskeletal: There is +1 pedal edema. Neurological:. Speech is normal. Skin: Skin is warm and dry - Labs CBC & Chem 7: 12/13/16 07:08 12/13/16 07:05 Assessment and Plan Plan: #1 umbilical hernia status post surgical repair #2 underlying history of hypertension #3 underlying history of atrial fibrillation may resume Pradaxa if okay with general surgery. #4 chronic degenerative joint disease of the cervical spine patient is medically cleared for discharge home
== END 2016-12-14 16:42 | disposition home health service (06) ==
LOC: OR 08:36 → 3SUR 11:50 → 3OBS 12:23 → 3SUR 14:47 → OR 12-14 16:42
PROVIDERS: ATTEND Surgery
DX: K42.0 Umbilical hernia with obstruction, without gangrene (principal); E66.9 Obesity, unspecified; Z68.43 Body mass index [BMI] 50.0-59.9, adult; I49.9 Cardiac arrhythmia, unspecified; I25.2 Old myocardial infarction; I10 Essential (primary) hypertension; E78.5 Hyperlipidemia, unspecified; I48.91 Unspecified atrial fibrillation; G47.30 Sleep apnea, unspecified; Z99.89 Dependence on other enabling machines and devices; Z87.891 Personal history of nicotine dependence; M47.812 Spondylosis without myelopathy or radiculopathy, cervical region; M50.321 Other cervical disc degeneration at C4-C5 level; M50.322 Other cervical disc degeneration at C5-C6 level; M50.323 Other cervical disc degeneration at C6-C7 level; R11.0 Nausea; Z79.1 Long term (current) use of non-steroidal anti-inflammatories (NSAID); Z79.899 Other long term (current) drug therapy
CPT/HCPCS: 93005; 97161; 88305; 80053 ×3; 80048; 85025 ×4; 88302; 49587; C1781; J2250; J0330; J1644 ×4; J2710; J2765; J0690; J2405 ×2; J2001; J3010; J1170 ×2; J2704

== ENCOUNTER 2017-01-01 09:02 | Emergency (ER) | payer MEDICARE, BC ==
--- NOTE | 2017-01-01 09:37 | ED ---
Skin/Abscess/FB HPI - General Source: patient, RN notes reviewed Mode of arrival: ambulatory Limitations: no limitations <Emerita Gomes - Last Filed: 01/01/17 09:34> <J Carlos Lucas - Last Filed: 01/01/17 12:25> <Jose Baeza - Last Filed: 01/01/17 13:26> - General Chief complaint: Skin/Abscess/Foreign Body Stated complaint: post op drain tube problem Time Seen by Provider: 01/01/17 09:13 - History of Present Illness Initial comments: Patient is a 71-year-old male presents emergency room for evaluation. Patient states he's had an incarcerated hernia repair about [address] Wright. Patient states she had a PETER tube that was placed. Patient states last night he changed his dressing and went to bed around midnight. Patient states around 5: 00 this morning he woke up in the PETER tube had fallen out. Patient states he called Dr. Short who is on-call for Dr. Wrightte was told to come to the emergency room to have it replaced. Patient denies worsening pain. Patient denies fevers or chills. Patient denies nausea or vomiting. (Emerita Gomes ) - Related Data Home Medications Medication Instructions Recorded Confirmed Dabigatran [Pradaxa] 150 mg PO BID 01/31/15 01/01/17 Doxazosin Mesylate [Cardura] 6 mg PO HS 01/31/15 01/01/17 Meloxicam [Mobic] 15 mg PO DAILY 01/31/15 01/01/17 Pravastatin Sodium [Pravachol] 20 mg PO HS 01/31/15 01/01/17 Bisoprolol-Hctz 2.5-6.25 mg [Ziac 0.5 tab PO QAM 01/01/16 01/01/17 2.5-6.25 MG] Fish Oil/Dha/Epa [Fish Oil 1,200 1 cap PO BID 01/01/16 01/01/17 mg Fish Oil] Multivitamins, Thera [Multivitamin 1 tab PO QAM 01/01/16 01/01/17 (formulary)] Omeprazole [PriLOSEC] 40 mg PO DAILY 01/01/17 01/01/17 Allergies Allergy/AdvReac Type Severity Reaction Status Date / Time No Known Allergies Allergy Verified 01/01/17 12:19 Review of Systems ROS Other: All systems not noted in ROS Statement are negative. <Emerita Gomes - Last Filed: 01/01/17 09:34> ROS Other: All systems not noted in ROS Statement are negative. <J Carlos Lucas - Last Filed: 01/01/17 12:25> ROS Other: All systems not noted in ROS Statement are negative. <Jose Baeza - Last Filed: 01/01/17 13:26> ROS Statement: Those systems with pertinent positive or pertinent negative responses have been documented in the HPI. Past Medical History Past Medical History: Atrial Fibrillation, GERD/Reflux, Hyperlipidemia, Myocardial Infarction (ND), Prostate Disorder, Sleep Apnea/CPAP/BIPAP Additional Past Medical History / Comment(s): CHRONIC BACK PAIN, SLEEPS IN RECLINER w/CPAP; "Cardiac arrest 01/2010 was d/t me being on cordarone" Last Myocardial Infarction Date:: 01/2010 History of Any Multi-Drug Resistant Organisms: None Reported Past Surgical History: Cholecystectomy, Heart Catheterization, Hernia Repair, Joint Replacement, Tonsillectomy Additional Past Surgical History / Comment(s): MULT CARDIOVERSIONS, LEFT KNEE REPLACEMENT; "cath was after cardiac arrest just to make sure there were no blockages", lien in 1988 Past Anesthesia/Blood Transfusion Reactions: No Reported Reaction Additional Past Anesthesia/Blood Transfusion Reaction / Comment(s): "ran a high temperature after my gallbladder was out because I was running a fever...for 2 weeks...that was the only time"; per pt Coby did not say that he had malignant hyperthermia. Past Psychological History: No Psychological Hx Reported Smoking Status: Former smoker Past Alcohol Use History: Occasional Additional Past Alcohol Use History / Comment(s): smoking: started 1959 stopped 1983 Past Drug Use History: None Reported - Past Family History Mother Family Medical History: Cancer, Coronary Artery Disease (CAD) Additional Family Medical History / Comment(s): ca: pancreatic ( from) Father Family Medical History: Coronary Artery Disease (CAD) Additional Family Medical History / Comment(s): of a ruptured aortic aneurysm, tuberculosis <Emerita Gomes - Last Filed: 01/01/17 09:34> General Exam Limitations: no limitations General appearance: alert, in no apparent distress Head exam: Present: atraumatic, normocephalic, normal inspection Eye exam: Present: normal appearance ENT exam: Present: normal exam Neck exam: Present: normal inspection Respiratory exam: Present: normal lung sounds bilaterally. Absent: respiratory distress Cardiovascular Exam: Present: regular rate, normal rhythm, normal heart sounds GI/Abdominal exam: Present: soft, other (small 1 cm in diameter open wound over left lower quadrant where PETER drain had previously been inserted. Draining of serous fluid. ). Absent: distended, tenderness Extremities exam: Present: normal inspection Back exam: Present: normal inspection Neurological exam: Present: alert, oriented X3, CN II-XII intact, normal gait Psychiatric exam: Present: normal affect, normal mood Skin exam: Present: warm, dry, intact, normal color. Absent: rash <Emerita Gomes - Last Filed: 01/01/17 09:34> <J Carlos Lucas - Last Filed: 01/01/17 12:25> <Jose Baeza - Last Filed: 01/01/17 13:26> - General Exam Comments Initial Comments: sitting in exam room, no acute distress. (Emerita Gomes) Course <Emerita Gomes - Last Filed: 01/01/17 09:34> <J Carlos Lucas - Last Filed: 01/01/17 12:25> <Jose Baeza - Last Filed: 01/01/17 13:26> Vital Signs 01/01/17 09:03 Temperature 97.8 F Pulse Rate 75 Respiratory 16 Rate Blood Pressure 149/72 O2 Sat by Pulse 98 Oximetry - Reevaluation(s) Reevaluation #1: 01/01/17 12:25 I did personally evaluate the patient [id number] and did discuss findings with him I did evaluate the patient abdomen. He does demonstrate in the left lower quadrant the site where the [place] drain had been. There is a small amount of fluid emanating from this. Patient's abdomen is nontender to palpation does have a obese abdomen with the panniculus present. I did discuss case with Dr. Short who did come in to see the patient for reinsertion of [place] drain. (J Carlos Lucas) Reevaluation #2: 01/01/17 13:25 Dr Short in emergency room and did evaluate patient (Jose Baeza) Medical Decision Making <Emerita Gomes - Last Filed: 01/01/17 09:34> <J Carlos Lucas - Last Filed: 01/01/17 12:25> <Jose Baeza - Last Filed: 01/01/17 13:26> - Medical Decision Making 71 year-old ER for evaluation of surgical issue, postop issue, Dr Short who did evaluate patient, at this time situation is resolved, drainage replaced and patient will be discharged home (Jose Baeza) Disposition <Emerita Gomes - Last Filed: 01/01/17 09:34> <J Carlos Lucas - Last Filed: 01/01/17 12:25> <Jose Baeza - Last Filed: 01/01/17 13:26> Clinical Impression: Postoperative complication Narrative: Removed J Tube - replaced (Jose Baeza) Disposition: HOME SELF-CARE Condition: Good Referrals: Anaid Christianson MD [Primary Care Provider] - 1-2 days Duke Short MD [STAFF PHYSICIAN] - 1-2 days
--- NOTE | 2017-01-01 13:45 | P.OP ---
Date of Procedure: 01/01/17 Preoperative Diagnosis: Seroma umbilical hernia site Postoperative Diagnosis: Seroma umbilical hernia site Procedure(s) Performed: Replacement PETER drain in to the seroma Anesthesia: local Surgeon: Duke Short Estimated Blood Loss (ml): 0 Pathology: none sent Condition: stable Disposition: other Indications for Procedure: The patient underwent the repair for a large umbilical hernia by Dr. Larsen about 3 weeks ago had a PETER drain placed then. He states that it had been draining about 60 mL so-so day. This morning the drain basically fell out the with the drainage of a large amount of fluid the on his bandage". He was advised to come to the emergency room. Replacement of the PETER drain was recommended. Operative Findings: Seroma umbilical hernia site Description of Procedure: The entrance site. The drain was located in the left lower quadrant of the abdomen. The area was thoroughly prepped the and draped. Local anesthetic was infiltrated at the site. A hemostat was then inserted into the track. A PETER drain similar to what he had was then inserted with the hemostat into the tract and gently advanced into the seroma. After several attempts were able to successfully place at the appropriately. Drain was then secured to the skin with a 3-0 nylon stitch and dressings were applied. Patient tolerated procedure well. He will follow up with Dr. Charlton in 3-4 days.
[2017-01-01 13:49] VITALS: BP 138/77; PULSE 65; RESP 18
[2017-01-01 13:50] VITALS: TEMP 98
== END 2017-01-01 13:50 | disposition home or self-care (01) ==
LOC: EC 09:02
DX: T81.89XA Other complications of procedures, not elsewhere classified, initial encounter (principal); K21.9 Gastro-esophageal reflux disease without esophagitis; E78.5 Hyperlipidemia, unspecified; Z90.49 Acquired absence of other specified parts of digestive tract; Z87.891 Personal history of nicotine dependence; Z79.899 Other long term (current) drug therapy; Y83.8 Other surgical procedures as the cause of abnormal reaction of the patient, or of later complication, without mention of misadventure at the time of the procedure
CPT/HCPCS: 99283

== ENCOUNTER → 2018-03-03 | Outpatient (CLI) | payer MEDICARE, BC ==
[2018-03-03 10:19] LABS: Anion Gap 9 mmol/L; Blood Urea Nitrogen 22 mg/dL (9-20); Calcium 9.3 mg/dL (8.4-10.2); Carbon Dioxide 25 mmol/L (22-30); Chloride 109 mmol/L (98-107); Glucose 86 mg/dL (74-99); Potassium 4.5 mmol/L (3.5-5.1); Sodium 143 mmol/L (137-145)
== END | disposition home or self-care (01) ==
LOC: LABWHC1 09:15
PROVIDERS: ATTEND Internal Medicine Cardiovascular Disease
DX: I48.2 Chronic atrial fibrillation (principal); I10 Essential (primary) hypertension
CPT/HCPCS: 36415; 80048

== ENCOUNTER → 2021-06-11 | Outpatient (CLI) | payer MEDICARE ==
--- NOTE | 2021-06-11 12:13 | US ---
EXAMINATION TYPE: US venous doppler duplex LE RT DATE OF EXAM: 06/11/2021 10:27 AM COMPARISON: NONE CLINICAL HISTORY: 75-year-old male R22.42 Swelling mass, M79.605 pain left leg. Patient states he fel l x 1 week ago. Redness and swelling. On blood thinners. No hx DVT. SIDE PERFORMED: Right TECHNIQUE: The lower extremity deep venous system is examined utilizing real time linear array sonog jaja with graded compression, doppler sonography and color-flow sonography. FINDINGS: VESSELS IMAGED: Common Femoral Vein Deep Femoral Vein Greater Saphenous Vein *- not visualized Femoral Vein Popliteal Vein Small Saphenous Vein * Proximal Calf Veins- not well visualized (* superficial vessels) Dull Coat [employer] Operator notes:Limited due to patient body habitus Right Leg: Negative for acute DVT IMPRESSION: Limitations due to large patient body habitus. No clear DVT seen within the right lower extremity juancarlos ged from the groin to the knee. Unable to adequately visualize the GSV or upper calf veins.
== END | disposition home or self-care (01) ==
LOC: RADUSWWP 10:06
PROVIDERS: ATTEND Family Medicine
DX: M79.605 Pain in left leg (principal); R22.42 Localized swelling, mass and lump, left lower limb

== ENCOUNTER → 2021-10-21 | Outpatient (CLI) | payer MEDICARE ==
[2021-10-21 14:13] LABS: African American GFR (CKD) >90 (>60 ml/min/1.73 sqM); Blood Urea Nitrogen 21 mg/dL (9-20); Non-African American GFR(CKD) 86 (>60 ml/min/1.73 sqM)
--- NOTE | 2021-10-21 19:41 | CT ---
EXAMINATION TYPE: CT abdomen pelvis w con DATE OF EXAM: 10/21/2021 COMPARISON: CT dated 08/09/2016 HISTORY: hematuria CT DLP: 4030 mGycm Automated exposure control for dose reduction was used. TECHNIQUE: Helical acquisition of images was performed from the lung bases through the pelvis. CONTRAST: Performed with Oral Contrast and with IV Contrast, patient injected with 100 mL of Isovue 300. FINDINGS: LUNG BASES: Unremarkable lung bases. Suspected cardiomegaly, please correlate with echocardiographic results. LIVER/GB: Small left hepatic lobe. 5 mm cyst is seen in segment 4 of the liver. No other definite hep atic focal lesion identified. Previous cholecystectomy. PANCREAS: Mild fatty infiltration. SPLEEN: No significant abnormality is seen. ADRENALS: No significant abnormality is seen. KIDNEYS: No significant abnormality is seen. FREE AIR: No free air is visualized. RETROPERITONEAL ADENOPATHY: None visualized URINARY BLADDER: The urinary bladder is nondistended with apparently thickened wall and perivesical fat stranding. There is also fat stranding surrounding the seminal vesicles and prostate. This is sug gestive of acute inflammatory/infectious processes at that location. Please correlate clinically and with urinalysis results. No prostatic enlargement. PELVIC ADENOPATHY: No pathologically enlarged pelvic lymph nodes. OSSEOUS STRUCTURES: Severe degenerative changes of the lower thoracic and lumbar spine with bilatera l L5 pars interarticularis break and grade 1 anterolisthesis of L5 over S1. BOWEL: Uncomplicated colonic diverticulosis most evident involving the sigmoid colon. OTHER: Questionable small sliding hiatal hernia. Scattered arterial atherosclerotic calcifications. N o sizable ascites. Small left fat-containing inguinal hernia. Thin anterior abdominal wall muscles wi th suspected divarication of recti. IMPRESSION: Unremarkable kidneys. No hydroureter or hydronephrosis. Slightly thickened urinary bladder wall yet i t is not completely distended. Fat stranding is seen surrounding the urinary bladder as well as the p rostate and seminal vesicles. Underlying acute inflammation/infectious process like cystitis or prost atitis cannot be excluded, please correlate clinically and with urinalysis results. Other incidental findings as described above.
== END | disposition home or self-care (01) ==
LOC: RADCTMAIN 13:24
PROVIDERS: ATTEND Family Medicine
DX: R31.9 Hematuria, unspecified (principal)
CPT/HCPCS: 82565; 84520; 74177; 36415; Q9967

== ENCOUNTER → 2022-05-10 | Outpatient (CLI) | payer MEDICARE ==
[2022-05-10 14:54] LABS: African American GFR (CKD) >90 (>60 ml/min/1.73 sqM); Blood Urea Nitrogen 22 mg/dL (9-20); Non-African American GFR(CKD) 84 (>60 ml/min/1.73 sqM)
--- NOTE | 2022-05-11 09:54 | CT ---
EXAMINATION TYPE: CT urogram wo/w con CT DLP: 7205.4 mGycm, Automated exposure control for dose reduction was used. DATE OF EXAM: 05/10/2022 4:27 PM COMPARISON: CT abdomen pelvis most recent from 11-10. CLINICAL INDICATION:Male, 76 years old with history of R31.0 GROSS HEMATURIA; TECHNIQUE: Urogram was obtained before and after the uneventful administration of 100 cc of Isovue-370 intraveno usly.. Coronal and sagittal reformats were performed. One or more CT dose reduction strategies were u tilized during this examination. 2D and 3D reconstructions are performed to assist visualization of t he urinary tract on a separate workstation. FINDINGS: Limited examination due to patient's body habitus. GENITOURINARY: RIGHT KIDNEY AND URETER: No calculi. No hydronephrosis or hydroureter. No renal mass or other lesions . No urothelial lesions: no filling defect, dilation, stricture or wall thickening. LEFT KIDNEY AND URETER: No calculi. No hydronephrosis or hydroureter. No renal mass or other lesions. No urothelial lesions: no filling defect, dilation, stricture or wall thickening. URINARY BLADDER: Resolution of previously demonstrated perivesicular fat stranding and wall thickenin g. No calculi, mass or other lesions. REPRODUCTIVE: Unremarkable. ABDOMEN LIVER: Small left hepatic lobe. Stable subcentimeter hypodense focus within segment 4 which is too sm all to characterize but likely represents a cyst. GALLBLADDER AND BILE DUCTS: Post cholecystectomy. No biliary ductal dilatation. PANCREAS: Mild fatty infiltration. SPLEEN: Unremarkable. ADRENAL GLANDS: Unremarkable. STOMACH AND BOWEL: Small hiatal hernia. Colonic diverticulosis without evidence for acute diverticuli tis. No evidence of bowel obstruction. PERITONEUM: No evidence of pneumoperitoneum, free fluid, or adenopathy. VASCULATURE: Atherosclerotic calcifications are present throughout the abdominal aorta and its branch es. No abdominal aortic aneurysm. MUSCULOSKELETAL: No acute osseous abnormality. No aggressive osseous lesion. 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 SOFT TISSUE/ABDOMINAL WALL: Small fat-containing left femoral hernia. Thin anterior abdominal wall mu scles is suspected divarication of recti. LOWER CHEST: Coronary artery and aortic valvular calcifications. IMPRESSION: 1. No evidence of urolithiasis or renal/urothelial neoplasm. 2. Resolution of previously demonstrated perivesicular fat stranding.
== END | disposition home or self-care (01) ==
LOC: RADCTMAIN 14:06
PROVIDERS: ATTEND Urology
DX: R31.0 Gross hematuria (principal)
CPT/HCPCS: 82565; 84520; 74178; 36415; 74400; Q9967

== ENCOUNTER → 2022-05-17 | Outpatient (CLI) | payer MEDICARE ==
--- NOTE | 2022-05-17 15:06 | US ---
EXAMINATION TYPE: US duplex aorta DATE OF EXAM: 05/17/2022 COMPARISON: CT 2021, [place] 2015 CLINICAL HISTORY: 76-year-old male Z13.6 ENCOUNTER FOR SCREENING FOR CARDIOVASCULAR D. TECHNIQUE: Multiple sonographic images of the abdominal aorta are obtained. 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 Unable to adequately visualize the aortic bifurcation or prox imal abdominal aorta. The mid and distal portion is normal caliber up to 2.4 cm.
== END | disposition home or self-care (01) ==
LOC: RADUSWWP 08:55
PROVIDERS: ATTEND Family Medicine
DX: Z13.6 Encounter for screening for cardiovascular disorders (principal)
CPT/HCPCS: 93979